=== PATIENT | female | born 1960 | race Caucasian/White ===

== ENCOUNTER 2020-06-28 12:56 | Emergency (ER) | payer MEDICAID, SELFPAY ==
[2020-06-28 13:01] VITALS: BP 159/83; PULSE 82; RESP 20; O2SAT 94
--- NOTE | 2020-06-28 13:06 | ED.GENADUL_ITS ---
Discharge Plan Disposition Patient Disposition: HOME Condition: Improving Discharge Details Clinical Impression: Back pain Primary Care Provider: None,None ED Provider: Adwoa Almendarez Home Meds and New Rx's Prescriptions: New methocarbamol 500 mg tablet 500 mg PO Q6H PRN (Reason: muscle spasm) Qty: 14 RF: 0 Continued fluticasone propion-salmeterol [Advair Diskus] 500-50 mcg/dose Blister With Device 1 INHALATION DAILY RF: 0 albuterol 90 mcg/actuation Aerosol 2 INHALATION PRN PRNRF: 0 Discharge Instructions Instructions: Back Pain (ED) Additional Instructions: Alternate ice and heat to the affected area(s) several times daily for 20 minutes at a time. Alternate tylenol and motrin as needed and directed for pain. Take the methocarbamol and oxycodone as needed and directed. You will receive a call from care management regarding a follow-up appointment with a primary care doctor to establish care and for reevaluation. Return immediately to the emergency department if you develop any worsening or new concerning symptoms. Discharge Data Discharge Date/Time-TO BE ENTERED AT DEPARTURE: 06/28/20 16:24 Discharge Physician: Adwoa Almendarez Medical Decision Making 1510 -- 60-year-old female with a history of morbid obesity and asthma presents for lower back pain that is worse with movement. Also complaining of abdominal bloating and urinary frequency. Blood pressure mildly hypertensive. She appears uncomfortable. Her abdomen is obese with minimal tenderness in the suprapubic region and left lower quadrant. She has significant tenderness palpation of the midline and left lumbar paraspinal region. She has no focal deficits. She has neurovascular intact. Discussed with patient that as she is complaining of abdominal bloating and has lower abdominal tenderness, would recommend further work-up including labs and imaging but she is declining this at this time and does not want x-ray or CAT scan. She would rather treatment for her back pain. Discussed that we could be missing a possible acute abdominal abnormality and she is aware of the risks of and disability due to missed diagnoses and will still like to proceed without further work-up. Will give a dose of IM Toradol, p.o. Valium and oxycodone and reassess. Urinalysis negative for infection. 1630 --patient reassessed and she feels much better. She was able to ambulate with improvement of symptoms. Patient feels good to go home. We will send with a prescription for methocarbamol and oxycodone to go. Patient placed on care management list to arrange for follow-up appointment with the primary care doctor to establish care. Usual and customary return precautions given prior to discharge. Medical Records Medical records reviewed: Yes I reviewed the patient's medical records. HPI General Mode of arrival: ambulatory . Date/Time Provider Initiated Documentation: 06/28/20 12:57 . Limitations to Documentation: no limitations . Information obtained by: patient . HPI Narrative: Patient is a 60-year-old female with a history of asthma presents for midline and left lower back pain for the past 5 days that is worse with movement. Patient states she may have pulled a muscle while walking her dog but does not recall a specific injury. She states the pain is worse with any movement, most specifically moving from sitting to standing and when turning. She has taken ibuprofen and Tylenol with some relief, last dose almost 5 hours ago. She does also admit to abdominal bloating and urinary frequency but denies any fever, nausea, vomiting, diarrhea, dysuria, hematuria, saddle anesthesia, leg pain, weakness or numbness. She does admit to urinary incontinence that occurs only with coughing, sneezing or moving but states this is not new. Patient states she moved here from [place] 1 year ago and has not established care with a primary care doctor. She states she has been diagnosed with uterine polyp in the past and feels that her abdominal bloating is due to this which is causing pressure on her sacrum and coccyx. Related Data Home Medications Medication Instructions Recorded Confirmed albuterol 2 INHALATION PRN PRN 06/28/20 fluticasone propion-salmeterol 1 INHALATION DAILY 06/28/20 [Advair Diskus] methocarbamol 500 mg PO Q6H PRN #14 tab 06/28/20 Previous Rx's Medication Instructions Recorded methocarbamol 500 mg PO Q6H PRN #14 tab 06/28/20 Allergies Allergy/AdvReac Type Severity Reaction Status Date / Time No Known Allergies Allergy Unverified 06/28/20 13:14 General Stated Complaint: Nk/Back Pain EDWARD: 4 Review of Systems All systems reviewed & are unremarkable except as noted in HPI and below Constitutional Constitutional: Reports as per HPI, Denies chills and Denies fever(s) Eyes Eyes: Denies blurry vision ENT Ears, Nose, Mouth, and Throat: Denies dizziness, Denies sore throat and Denies throat swelling Cardiovascular Cardiovascular: Denies chest pain and Denies dyspnea Respiratory Respiratory: Denies cough and Denies dyspnea Gastrointestinal Gastrointestinal: Denies abdominal pain, Denies diarrhea and Denies vomiting Genitourinary Genitourinary: Denies hematuria and Denies dysuria Musculoskeletal Musculoskeletal: Reports back pain and Denies numbness Integumentary/Breasts Skin/Breast: Denies lesions and Denies rash Neurologic Neurologic: Denies dizziness, Denies localized weakness and Denies numbness Allergic/Immunologic Allergic/Immunologic: Denies throat swelling [facility] Medical History (Updated 06/28/20 @ 15:13 by Adwoa Almendarez DO) Asthma Surgical History (Updated 06/28/20 @ 13:53 by Adwoa Almendarez DO) History of knee surgery Social History Smoking/Tobacco Use Status: Former Tobacco Use Smoking risk assessment performed?: Yes Alcohol Intake: never Substance use type: does not use Do you feel safe at home: Yes Do you feel safe in your relationship?: Yes Exam Const General: cooperative and uncomfortable Orientation: alert, awake and oriented x3 HENMT Head: normal to inspection Ears: hearing grossly normal bilaterally and external ears normal General nose exam: external nose normal Face and sinus: normal facial exam Mouth: oral mucosae normal Teeth and gingiva: dentition normal Throat: posterior oropharynx normal Eyes General: appearance normal, both eyes and all related structures Eyelids: eyelids normal EOM: EOM intact bilaterally Neck Neck: normal visual inspection Lymphatic: no lymphadenopathy noted Chest Chest: normal inspection of the chest Resp Effort & Inspection: normal respiratory effort and able to speak in complete sentences Auscultation: clear to auscultation bilaterally Cardio Rate: regular rate Rhythm: regular rhythm GI Inspection: normal to inspection and obesity Palpation: soft, not firm, no guarding, no hepatosplenomegaly, no masses and tender in the LLQ and suprapubicly Auscultation: hypoactive bowel sounds Back/Spine/Pelvis Back: no CVA tenderness Thoracic/Lumbar Spine: straight leg raise negative bilaterally Back/spine/pelvis image: 1. Tenderness to palpation of midline lumbar spine and L paraspinal lumbar region. There is no edema, erythema, crepitus, ecchymosis, abrasion, lacerations or evidence of cyst or abscess. Skin General skin exam: no rashes or lesions noted Neuro General: patient alert, patient awake, moves all extremities, no meningeal signs and no focal motor deficits Cognition: normal cognition Speech: speech normal Gait: antalgic Motor: muscle tone normal throughout Sensory Exam: no sensory deficits noted DTR's: Rt Patellar: 1+, Lt Patellar: 1+, Rt Ankle: 1+ and Lt Ankle: 1+ Plantar Reflexes: Equivocal: bilateral (negative babinski b/l ) Extrem General: normal to inspection, full ROM and capillary refill normal Other: Bilateral DP/PT pulses intact. Psych Appearance: grossly normal Mental Status: mental status grossly normal Speech and Movement: speech and movement normal Affect: normal affect Thought Process: normal Course Vital Signs Vital signs: Vital Signs Pulse 82 06/28/20 13:01 Respiratory Rate 20 06/28/20 13:01 Blood Pressure 159/83 H 06/28/20 13:01 Pulse Oximetry 94 06/28/20 13:01 Temperature Source Temporal Artery Scan 06/28/20 13:01 Pulse 82 06/28/20 13:01 Respiratory Rate 20 06/28/20 13:01 Blood Pressure 159/83 H 06/28/20 13:01 Blood Pressure Position Sitting 06/28/20 13:01 Pulse Oximetry 94 06/28/20 13:01 Oxygen Delivery Method Room Air 06/28/20 13:01 Oxygen Flow Rate 0 06/28/20 13:01 Pain Level 0 06/28/20 13:01
[2020-06-28 13:25] LABS: Bilirubin Negative (Negative); Blood Trace-lysed (Negative); Clarity Clear (Clear); Glucose Negative (Negative); Ketones Negative (Negative); Leukocyte Esterase Negative (Negative); Nitrite Negative (Negative); Specific Gravity 1.025 (1.005-1.025); Urobilinogen 0.2 EU/dL (Up TO 0.2)
[2020-06-28 13:31] LABS: Bacteria Rare HPF (Negative); Crystals Negative HPF (Negative); Epithelial Cells Many HPF (Negative); Mucus Trace (Negative); WBC 0-2 HPF (0-5)
[2020-06-28 13:32] LABS: C & S Indicated? No
[2020-06-28] MEDS: oxyCODONE 5 MG TAB PO (13:58)
[2020-06-28] MEDS: Ketorolac 60 MG/2 ML VIAL IM (13:58)
[2020-06-28] MEDS: diazePAM 5 MG TAB PO (13:58)
[2020-06-28 14:58] VITALS: BP 133/68; PULSE 79; RESP 17; TEMP 36.7; O2SAT 96
--- NOTE | 2020-07-02 10:48 | PDOC.ERCMPRO ---
- If Service Date Differs Date of service: 07/02/20 Time of Service: 10:48 Care Management Progress Note Esperanza is seen in the ED on 06/28/[address] Almendarez, ED provider, requests that CM assist patient in establishing care with a PCP. CM calls the phone number ([phone]) provided by patient as a message contact number. The individual who answers the phone at that number refuses to take a message for Esperanza, states she rarely sees her, and requests her phone number be removed from Esperanza's chart as a contact number. CM sends a letter to Esperanza, since she is not available by phone, along with a New Patient Packet from [facility] in [place]. Esperanza is instructed to complete the paperwork and return it to [facility] to establish with a PCP at their facility. CM's contact information is also provided in case Esperanza has questions or concerns.
== END 2020-06-28 16:24 | disposition home or self-care (01) ==
PROVIDERS: Emergency Provider Physician Assistant
DX: M54.5 Low back pain (principal); R10.30 Lower abdominal pain, unspecified; R14.0 Abdominal distension (gaseous)
CPT/HCPCS: 96372; 99284; 81003; 81015; 99283; J1885

== ENCOUNTER 2020-09-04 17:58 | Outpatient (REF) | payer MEDICAID, SELFPAY ==
[2020-09-07 12:50] LABS: COVID-19 RT-PCR UVMMC Result Negative (Negative)
== END 2020-09-04 18:18 ==
LOC: LBN 17:58
PROVIDERS: Visit Provider Nurse Practitioner Adult Health
DX: Z11.52 Encounter for screening for COVID-19 (principal)
CPT/HCPCS: U0003

== ENCOUNTER 2020-09-18 16:14 | Outpatient (REF) | payer MEDICAID, SELFPAY ==
[2020-09-19 14:37] LABS: COVID-19 RT-PCR Result Not Detected ((See Note))
== END 2020-09-18 16:34 ==
LOC: LBN 16:14
PROVIDERS: PCP Family Medicine; Visit Provider Nurse Practitioner Adult Health
DX: Z11.52 Encounter for screening for COVID-19 (principal)
CPT/HCPCS: U0003

== ENCOUNTER 2020-09-30 20:20 | Outpatient (REF) | payer MEDICAID, SELFPAY ==
[2020-10-01 16:27] LABS: COVID-19 RT-PCR Result Not Detected ((See Note))
== END 2020-09-30 20:21 | disposition home or self-care (01) ==
LOC: LBN 20:20
PROVIDERS: PCP Family Medicine; Visit Provider Nurse Practitioner Adult Health
DX: Z20.822 Contact with and (suspected) exposure to COVID-19 (principal)
CPT/HCPCS: U0003